=== PATIENT | female | born 1995 | race Caucasian/White ===

== ENCOUNTER 2024-06-05 15:57 | Observation (INO) | payer BC ==
[~2024-06-05] VITALS: Ht 162.6 cm; Wt 90.7 kg
[2024-06-05] MEDS ORDERED: PREN-537 PO (16:12)
[2024-06-05] MEDS ORDERED: LACTATED RINGERS 500 ML IV SCH (16:20)
[2024-06-05] MEDS: LACTATED RINGERS 1,000 ML IV SCH (16:32)
== END 2024-06-05 17:40 | disposition home or self-care (01) ==
LOC: MLD 15:57
PROVIDERS: ADMIT Obstetrics & Gynecology; ATTEND Obstetrics & Gynecology
DX: O21.2 Late vomiting of pregnancy (principal); O26.893 Other specified pregnancy related conditions, third trimester; R42 Dizziness and giddiness; Z3A.32 32 weeks gestation of pregnancy
CPT/HCPCS: 96360; G0378; G0379; J7120